=== PATIENT | male | born 1930 | race Caucasian/White ===

== ENCOUNTER → 2017-02-19 | Outpatient (CLI) | payer MEDICARE, OTHER ==
[~2017-02-19] MED LIST: 00186-0370-20 IH; ALEVE 220MG220 MG PO; ASPIR-LOW81 MG PO; ASPIRIN E.C. 8181 MG PO; ATOXIMETIN-B1 CAP PO; BIAXIN FILMTAB500 MG PO; BRILINTA90 MG; BRILINTA90 MG PO; CADUET 10 MG-401 TAB PO; CADUET 5 MG PO; CADUET 5 MG-201 TAB PO; CARDI-OMEGA1000 MG PO; CLEOCIN HC150 MG/CAP PO; CLINDAMYCIN150 MG PO; CLINDAMYCIN300 MG PO; COZAAR 50MG50 MG/TAB PO; COZAAR50 MG PO; EFFIENT10 MG PO; FISH OIL CONC1000 MG PO; FLONASE NASAL S16 GM NS; GLUCOPHAGE1000 MG PO; GRALISE300 MG PO; LEVAQUIN 5500 MG/TA1 PO; LOPRESSOR 550 MG/TAB PO; LYRICA 25MG CAP25 MG PO; METOPROLOL50 MG PO; MIRALAX PA17 GM/Dose PO; MUCINEX600 M1 PO; MULTI VITAMINS1 TAB PO; MULTIVITAMIN1 CTB PO; MVI; NAPROSYN 2250 MG/TAB PO; NAPROSYN250 MG PO; NEURONTIN300 MG/CAP PO; NEURONTIN600 MG/TAB PO; NITROQUICK0.4 MG SL; NORCO 325 MG-51 TAB PO; PRILOSEC 20MG20 MG PO; PRILOSEC20 M1 PO; PROAIR HFA0.09 MG/AC IH; REGLAN 5MG T5 MG/TAB PO; REMERON30 MG PO; ROBAXIN 75750 MG/TAB PO; RT ADVAIR 128 DISKUS IH; RT ADVAIR HFA 412 GM IH; RT SPIRIVA18 MCG IH; SENNA5.6 MG PO; SINGULAIR 110 MG/TAB PO; SYMBICORT1 AE1 IH; TOPROL XL50 MG PO; TYLENOL #4 (1 UDTAB PO; TYLENOL W/COD1 UDTAB PO; XARELTO10 MG PO; ZYRTEC 10MG10 MG PO
== END ==
LOC: MHCPAIN 07:46
DX: G89.29 Other chronic pain (principal); M47.27 Other spondylosis with radiculopathy, lumbosacral region; M48.06 Spinal stenosis, lumbar region
CPT/HCPCS: G0463

== ENCOUNTER 2017-03-08 07:43 | Outpatient (CLI) | payer MEDICARE, OTHER ==
[2017-03-08] VITALS (7 sets, daily range): BP systolic 130–148; BP diastolic 71–78; PULSE 69–74
[~2017-03-08] VITALS: Ht 175.3 cm; Wt 88.8 kg
[~2017-03-08 07:43] MED LIST changes: -LYRICA 25MG CAP25 MG PO; -MULTI VITAMINS1 TAB PO; -REMERON30 MG PO
[2017-03-08] MEDS ORDERED: REMERON30 MG PO (08:07)
== END 2017-03-08 10:50 | disposition home or self-care (01) ==
LOC: COL.RAD 07:43
DX: M48.06 Spinal stenosis, lumbar region (principal); I25.10 Atherosclerotic heart disease of native coronary artery without angina pectoris; I10 Essential (primary) hypertension; E78.5 Hyperlipidemia, unspecified; K21.9 Gastro-esophageal reflux disease without esophagitis; I25.2 Old myocardial infarction; E11.9 Type 2 diabetes mellitus without complications; J44.9 Chronic obstructive pulmonary disease, unspecified; Z79.899 Other long term (current) drug therapy; Z79.82 Long term (current) use of aspirin; Z79.84 Long term (current) use of oral hypoglycemic drugs
CPT/HCPCS: Q9965

== ENCOUNTER → 2017-03-13 | Outpatient (CLI) | payer MEDICARE, OTHER ==
[~2017-03-13] MED LIST changes: +LYRICA 25MG CAP25 MG PO; +MULTI VITAMINS1 TAB PO; +REMERON30 MG PO
== END ==
LOC: MHCPAIN 09:54
DX: G89.29 Other chronic pain (principal); M47.817 Spondylosis without myelopathy or radiculopathy, lumbosacral region; M54.16 Radiculopathy, lumbar region; M53.3 Sacrococcygeal disorders, not elsewhere classified
CPT/HCPCS: G0463

== ENCOUNTER → 2017-03-29 | Outpatient (CLI) | payer MEDICARE, OTHER | LOC: MHCPAIN 08:21 | DX: M47.817 Spondylosis without myelopathy or radiculopathy, lumbosacral region (principal) | CPT/HCPCS: J1100; Q9967 ==

== ENCOUNTER → 2017-04-24 | Outpatient (CLI) | payer MEDICARE, OTHER | LOC: MHCPAIN 08:10 | DX: G89.29 Other chronic pain (principal); M47.817 Spondylosis without myelopathy or radiculopathy, lumbosacral region; M54.16 Radiculopathy, lumbar region | CPT/HCPCS: G0463 ==

== ENCOUNTER → 2017-05-03 | Outpatient (CLI) | payer MEDICARE, OTHER | LOC: MHCPAIN 07:38 | DX: M47.817 Spondylosis without myelopathy or radiculopathy, lumbosacral region (principal) | CPT/HCPCS: J1100; Q9967 ==

== ENCOUNTER → 2017-06-01 | Outpatient (CLI) | payer MEDICARE, OTHER | LOC: MHCPAIN 12:00 | DX: G89.29 Other chronic pain (principal); M47.817 Spondylosis without myelopathy or radiculopathy, lumbosacral region; M54.16 Radiculopathy, lumbar region | CPT/HCPCS: G0463 ==

== ENCOUNTER → 2017-07-03 | Outpatient (CLI) | payer MEDICARE, OTHER ==
[~2017-07-03] MED LIST changes: -BRILINTA90 MG; -CADUET 5 MG-201 TAB PO; +HCTZ 25MG TAB25 MG PO; +IPRATROPIUM BROM3 M1 IH; +MEDROL 4MG DOSPA4 MG PO; +THEO-24400 MG PO; +TOPROL XL200 MG PO
== END ==
LOC: MHCPAIN 07:47
DX: G89.29 Other chronic pain (principal); M47.27 Other spondylosis with radiculopathy, lumbosacral region; Z87.891 Personal history of nicotine dependence
CPT/HCPCS: G0463

== ENCOUNTER → 2017-07-04 | Outpatient (CLI) | payer MEDICARE, OTHER ==
[~2017-07-04] MED LIST changes: +BRILINTA90 MG; +CADUET 5 MG-201 TAB PO; -HCTZ 25MG TAB25 MG PO; -IPRATROPIUM BROM3 M1 IH; -MEDROL 4MG DOSPA4 MG PO; -THEO-24400 MG PO; -TOPROL XL200 MG PO
== END ==
LOC: COL.RAD 09:30
DX: I77.810 Thoracic aortic ectasia (principal)
CPT/HCPCS: Q9967

== ENCOUNTER 2017-07-09 14:00 | Outpatient (RCR) | payer MEDICARE, OTHER ==
[~2017-07-09 14:00] MED LIST changes: -LYRICA 25MG CAP25 MG PO; -MULTI VITAMINS1 TAB PO
== END 2017-07-11 08:16 ==
LOC: WSPT 14:00
DX: M47.27 Other spondylosis with radiculopathy, lumbosacral region (principal); G89.29 Other chronic pain; M79.2 Neuralgia and neuritis, unspecified
CPT/HCPCS: G0283-GP; G8978-GP; G8979-GP; G8980-GP

== ENCOUNTER 2017-07-13 07:56 | Emergency (ER) | payer MEDICARE, OTHER ==
[~2017-07-13] VITALS: Ht 175.3 cm; Wt 88.6 kg
[2017-07-13 08:06] VITALS: BP 128/58; PULSE 74; TEMP 98.4
[2017-07-13] MEDS ORDERED: MULTI VITAMINS1 TAB PO (08:55)
[2017-07-13] MEDS ORDERED: LYRICA 25MG CAP25 MG PO (08:56)
== END 2017-07-13 09:38 | disposition home or self-care (01) ==
LOC: COL.ER 07:56
DX: S63.501A Unspecified sprain of right wrist, initial encounter (principal); S00.33XA Contusion of nose, initial encounter; S00.81XA Abrasion of other part of head, initial encounter; I25.10 Atherosclerotic heart disease of native coronary artery without angina pectoris; I25.2 Old myocardial infarction; I10 Essential (primary) hypertension; E11.9 Type 2 diabetes mellitus without complications; Z79.82 Long term (current) use of aspirin; Z79.84 Long term (current) use of oral hypoglycemic drugs; W01.198A Fall on same level from slipping, tripping and stumbling with subsequent striking against other object, initial encounter; Y93.01 Activity, walking, marching and hiking

== ENCOUNTER → 2018-01-29 | Outpatient (CLI) | payer MEDICARE, OTHER ==
[~2018-01-29] MED LIST changes: +LYRICA 25MG CAP25 MG PO; +MULTI VITAMINS1 TAB PO
== END ==
LOC: MHCPAIN 11:46
DX: G89.29 Other chronic pain (principal); M47.817 Spondylosis without myelopathy or radiculopathy, lumbosacral region; M54.16 Radiculopathy, lumbar region; M53.3 Sacrococcygeal disorders, not elsewhere classified; M47.814 Spondylosis without myelopathy or radiculopathy, thoracic region; M48.061 Spinal stenosis, lumbar region without neurogenic claudication
CPT/HCPCS: G0463

== ENCOUNTER → 2018-02-14 | Outpatient (CLI) | payer MEDICARE, OTHER | LOC: MHCPAIN 07:54 | DX: M47.817 Spondylosis without myelopathy or radiculopathy, lumbosacral region (principal); M12.88 Other specific arthropathies, not elsewhere classified, other specified site | CPT/HCPCS: J1040; Q9967 ==

== ENCOUNTER → 2018-03-05 | Outpatient (CLI) | payer MEDICARE, OTHER | LOC: MHCPAIN 09:15 | DX: G89.29 Other chronic pain (principal); M47.27 Other spondylosis with radiculopathy, lumbosacral region; M48.061 Spinal stenosis, lumbar region without neurogenic claudication; M53.3 Sacrococcygeal disorders, not elsewhere classified | CPT/HCPCS: G0463 ==

== ENCOUNTER → 2018-06-04 | Outpatient (CLI) | payer MEDICARE, OTHER | LOC: MHCPAIN 09:13 | DX: G89.29 Other chronic pain (principal); M47.817 Spondylosis without myelopathy or radiculopathy, lumbosacral region; M54.16 Radiculopathy, lumbar region; M53.3 Sacrococcygeal disorders, not elsewhere classified; M48.061 Spinal stenosis, lumbar region without neurogenic claudication | CPT/HCPCS: G0463 ==

== ENCOUNTER → 2018-06-20 | Outpatient (CLI) | payer MEDICARE, OTHER | LOC: MHCPAIN 06-19 13:34 | DX: M54.16 Radiculopathy, lumbar region (principal); M47.817 Spondylosis without myelopathy or radiculopathy, lumbosacral region | CPT/HCPCS: J1100; Q9967 ==

== ENCOUNTER → 2018-07-15 | Outpatient (CLI) | payer MEDICARE, OTHER | LOC: MHCPAIN 07:53 | DX: G89.29 Other chronic pain (principal); M47.817 Spondylosis without myelopathy or radiculopathy, lumbosacral region; M54.16 Radiculopathy, lumbar region; M53.3 Sacrococcygeal disorders, not elsewhere classified; M48.061 Spinal stenosis, lumbar region without neurogenic claudication | CPT/HCPCS: G0463 ==

== ENCOUNTER → 2018-10-14 | Outpatient (CLI) | payer MEDICARE, OTHER | LOC: MHCPAIN 07:44 | DX: G89.29 Other chronic pain (principal); M47.817 Spondylosis without myelopathy or radiculopathy, lumbosacral region; M54.16 Radiculopathy, lumbar region; M53.3 Sacrococcygeal disorders, not elsewhere classified; M48.061 Spinal stenosis, lumbar region without neurogenic claudication | CPT/HCPCS: G0463 ==

== ENCOUNTER → 2019-01-14 | Outpatient (CLI) | payer MEDICARE, OTHER | LOC: MHCPAIN 08:57 | DX: G89.29 Other chronic pain (principal); M47.817 Spondylosis without myelopathy or radiculopathy, lumbosacral region; M54.16 Radiculopathy, lumbar region; M53.3 Sacrococcygeal disorders, not elsewhere classified; M48.061 Spinal stenosis, lumbar region without neurogenic claudication | CPT/HCPCS: G0463 ==

== ENCOUNTER 2019-04-13 09:19 | Emergency (ER) | payer MEDICARE, OTHER ==
[~2019-04-13] VITALS: Ht 175.3 cm; Wt 87.3 kg
[~2019-04-13 09:19] MED LIST changes: -BRILINTA90 MG; -CADUET 5 MG-201 TAB PO
[2019-04-13 09:22] VITALS: BP 137/62; TEMP 99
[2019-04-13] MEDS ORDERED: HCTZ 25MG TAB25 MG PO (09:48)
[2019-04-13] MEDS ORDERED: TOPROL XL200 MG PO (09:52)
[2019-04-13] MEDS ORDERED: IPRATROPIUM BROM3 M1 IH (09:53)
[2019-04-13] MEDS ORDERED: THEO-24400 MG PO (09:57)
[2019-04-13] MEDS ORDERED: MEDROL 4MG DOSPA4 MG PO (11:00)
[2019-04-13 11:10] VITALS: PULSE 89
== END 2019-04-13 11:10 | disposition home or self-care (01) ==
LOC: COL.ER 09:19
DX: M48.00 Spinal stenosis, site unspecified (principal); J44.9 Chronic obstructive pulmonary disease, unspecified; Z87.891 Personal history of nicotine dependence; Z98.890 Other specified postprocedural states; Z79.51 Long term (current) use of inhaled steroids; Z79.84 Long term (current) use of oral hypoglycemic drugs; Z79.82 Long term (current) use of aspirin

== ENCOUNTER → 2019-04-15 | Outpatient (CLI) | payer MEDICARE, OTHER ==
[~2019-04-15] MED LIST changes: +HCTZ 25MG TAB25 MG PO; +IPRATROPIUM BROM3 M1 IH; +MEDROL 4MG DOSPA4 MG PO; +THEO-24400 MG PO; +TOPROL XL200 MG PO
== END ==
LOC: MHCPAIN 07:53
DX: G89.29 Other chronic pain (principal); M47.817 Spondylosis without myelopathy or radiculopathy, lumbosacral region; M54.16 Radiculopathy, lumbar region; M53.3 Sacrococcygeal disorders, not elsewhere classified
CPT/HCPCS: G0463

== ENCOUNTER → 2019-07-15 | Outpatient (CLI) | payer MEDICARE, OTHER | LOC: MHCPAIN 08:54 | DX: G89.29 Other chronic pain (principal); M47.817 Spondylosis without myelopathy or radiculopathy, lumbosacral region; M54.16 Radiculopathy, lumbar region; M53.3 Sacrococcygeal disorders, not elsewhere classified; M48.061 Spinal stenosis, lumbar region without neurogenic claudication | CPT/HCPCS: G0463 ==

== ENCOUNTER → 2019-10-14 | Outpatient (CLI) | payer MEDICARE, OTHER | LOC: MHCPAIN 08:27 | DX: M47.817 Spondylosis without myelopathy or radiculopathy, lumbosacral region (principal); M54.16 Radiculopathy, lumbar region | CPT/HCPCS: G0463 ==

== ENCOUNTER → 2020-03-30 | Outpatient (CLI) | payer MEDICARE, OTHER | LOC: MHCPAIN 09:02 | DX: M47.817 Spondylosis without myelopathy or radiculopathy, lumbosacral region (principal); M54.5 Low back pain; M48.061 Spinal stenosis, lumbar region without neurogenic claudication; M54.16 Radiculopathy, lumbar region; M53.3 Sacrococcygeal disorders, not elsewhere classified | CPT/HCPCS: G0463 ==

== ENCOUNTER → 2020-04-12 | Outpatient (CLI) | payer MEDICARE, OTHER | LOC: COL.RAD 12:28 | DX: M19.011 Primary osteoarthritis, right shoulder (principal); M75.121 Complete rotator cuff tear or rupture of right shoulder, not specified as traumatic ==

== ENCOUNTER → 2020-06-29 | Outpatient (CLI) | payer MEDICARE, OTHER | LOC: MHCPAIN 08:51 | DX: M47.817 Spondylosis without myelopathy or radiculopathy, lumbosacral region (principal); M54.5 Low back pain; M48.061 Spinal stenosis, lumbar region without neurogenic claudication; G89.29 Other chronic pain | CPT/HCPCS: G0463 ==

== ENCOUNTER → 2020-10-13 | Outpatient (CLI) | payer MEDICARE, OTHER | LOC: MHCPAIN 13:25 | DX: M47.817 Spondylosis without myelopathy or radiculopathy, lumbosacral region (principal); M54.5 Low back pain; M53.3 Sacrococcygeal disorders, not elsewhere classified; G89.29 Other chronic pain; M54.16 Radiculopathy, lumbar region | CPT/HCPCS: G0463 ==